=== PATIENT | female | born 1975 | race Caucasian/White ===

== ENCOUNTER 2016-05-06 21:43 | Emergency (ER) | payer OTHER ==
[2016-05-06 21:52] VITALS: TEMP 98.2
--- NOTE | 2016-05-06 22:04 | EDPHY ---
H & P Stated Complaint: Wepw-Zot-Ywyxmn monitor rate was 190bpm-seeoumou Kiser. HPI/ROS: HPI CHIEF COMPLAINT: Palpitations HISTORY OF PRESENT ILLNESS: This patient very pleasant 40-year-old female denies any significant medical history except for bipolar disorder as well as thyroid disease, presents to the emergency room palpitations. Patient states that she has been seeing Dr. Kiser for evaluation of palpitations been wearing a Holter monitor for an entire month and today was the last day she is supposed to be wearing this monitor. She tells me she has had 3 episodes of palpitations that were significant over the past month. She tells me she has underlying AFib. This is a new diagnosis for her. She is not on any anticoagulation. Today around 8:30 p.m. she developed palpitations racing heart and shortness of breath however no chest pain. She she states that she alerted the Holter monitor for an event and Dr. Morin called her around 8 30 and recommend that she go to the emergency room as her heart rate was in the 190s. Past Medical History: Bipolar disorder, depression, thyroid disease Past Surgical History: Social History: Denies daily use of drugs alcohol tobacco products, lives in [place], is a teacher Family History: noncontributory ROS REVIEW OF SYSTEMS: A comprehensive 10 point review of systems is otherwise negative aside from elements mentioned in the history of present illness. Exam Constitutional triage nursing summary reviewed, vital signs reviewed, awake/ alert. Eyes normal conjunctivae and sclera, EOMI, PERRLA. HENT normal inspection, atraumatic, moist mucus membranes, no epistaxis, neck supple/ no meningismus, no raccoon eyes. Respiratory clear to auscultation bilaterally, normal breath sounds, no respiratory distress, no wheezing. Cardiovascular irregular, irregular rhythm, no murmur, no edema, distal pulses normal. Gastrointestinal soft, non-tender, no rebound, no guarding, normal bowel sounds, no distension, no pulsatile mass. Genitourinary no CVA tenderness. Musculoskeletal no midline vertebral tenderness, full range of motion, no calf swelling, no tenderness of extremities, no meningismus, good pulses, neurovascularly intact. Skin pink, warm, & dry, no rash, skin atraumatic. Neurologic awake, alert and oriented x 3, AAOx3, moves all 4 extremities equally, motor intact, sensory intact, CN II-XII intact, normal cerebellar, normal vision, normal speech. Psychiatric normal mood/affect. Heme/Lymph/Immune no lymphadenopathy. Differential Diagnosis: Includes but is not limited to in a particular order AFib AFib with RVR, dehydration, electrolyte abnormality, other arrhythmia doubt acute coronary syndrome Medical Decision Making: plan for this patient be placed on full teletypesetter monitor , IV establishment, EKG, chest x-ray, D-dimer, troponin fluid bolus. And will consult Dr. Morin. Re-evaluation: EKG interpretation by me on record in [employer] system. Impression time of EKG 2203, this is AFib rate of 113 no acute ischemic changes appreciated ED x-ray chest one view: Negative for acute cardiopulmonary disease. 2310: Re-evaluation this time patient is resting comfortably no chest pain or shortness of breath. She is on the teletypesetter monitor heart rate is 96 in AFib, blood pressure stable pulse ox stable. Spoke with Dr. Vasquez at this time and would like the patient started on metoprolol 25 mg p. o. twice daily and Eliquis 5 mg p. o. twice daily. And follow up with Dr. Kiser outpatient on Wednesday. Patient does understand return emergency room if she develops worsening shortness of breath, chest pain, syncope, palpitations. 2322: patient is comfortable going home. She is comfortable this plan. She does understand return emergency room if she has syncope, chest pain, shortness of breath, or does not feel well. Also has fast heart rate. She understands follow-up with [facility] on Wednesday. Also if she develops any stroke-like symptoms she needs to immediately return to the ER she understands this. Source: Patient - Personal History LMP (Females 10-55): 8-14 Days Ago Current Tetanus/Diphtheria Vaccine: Unsure - Medical/Surgical History Hx Asthma: No Hx Chronic Respiratory Disease: No Hx Diabetes: No Hx Cardiac Disease: Yes Hx Renal Disease: No Hx Cirrhosis: No Hx Alcoholism: No Hx HIV/AIDS: No Hx Splenectomy or Spleen Trauma: No Other PMH: Afib new Diagnosis, Bipolar - Social History Smoking Status: Never smoked Constitutional: Initial Vital Signs Temperature (C) 36.8 C 05/06/16 21:49 Heart Rate 108 H 05/06/16 21:49 Respiratory Rate 16 05/06/16 21:49 Blood Pressure 126/93 H 05/06/16 21:49 O2 Sat (%) 95 05/06/16 21:49 O2 Delivery Mode Nasal Cannula O2 (L/minute) 3 Allergies/Adverse Reactions: Penicillins Allergy (Unknown, Verified 05/06/16 21:53) Home Medications: Medication Instructions Recorded LAMOTRIGINE 400 mg PO DAILY06 07/11/13 Levothyroxine 250 mcg PO DAILY06 07/11/13 Liothyronine Sodium 100 mcg PO DAILY06 07/11/13 OXcarbazepine 600 mg PO HS 07/11/13 Apixaban [Eliquis] 5 mg PO BID #14 tab 05/06/16 [place] Carbonate 05/06/16 Metoprolol Tartrate [Lopressor 25 25 mg PO BID #30 tab 05/06/16 mg (*)] Nuedexta 20-10 mg Capsule 05/06/16 Medical Decision Making - Data Points Laboratory Results: Laboratory Results 05/06/16 22:08 05/06/16 22:08 05/06/16 05/06/16 05/06/16 22:08 22:08 22:08 WBC 9.57 10^3/uL H 10^3/uL (3.80-9.50) RBC 4.85 10^6/uL 10^6/uL (4.18-5.33) Hgb 14.0 g/dL g/dL (12.6-16.3) Hct 42.2 % % (38.0-47.0) MCV 87.0 fL fL (81.5-99.8) MCH 28.9 pg pg (27.9-34.1) MCHC 33.2 g/dL g/dL (32.4-36.7) RDW 12.7 % % (11.5-15.2) Plt Count 342 10^3/uL 10^3/uL (150-400) MPV 8.9 fL fL (8.7-11.7) Neut % (Auto) 47.2 % % (39.3-74.2) Lymph % (Auto) 37.9 % % (15.0-45.0) Irwin % (Auto) 12.1 % % (4.5-13.0) Eos % (Auto) 2.5 % % (0.6-7.6) Baso % (Auto) 0.2 % L % (0.3-1.7) Nucleat RBC Rel Count 0.0 % % (0.0-0.2) Absolute Neuts (auto) 4.51 10^3/uL 10^3/uL (1.70-6.50) Absolute Lymphs (auto) 3.63 10^3/uL H 10^3/uL (1.00-3.00) Absolute Monos (auto) 1.16 10^3/uL H 10^3/uL (0.30-0.80) Absolute Eos (auto) 0.24 10^3/uL 10^3/uL (0.03-0.40) Absolute Basos (auto) 0.02 10^3/uL 10^3/uL (0.02-0.10) Absolute Nucleated RBC 0.00 10^3/uL 10^3/uL (0-0.01) Immature Gran % 0.1 % % (0.0-1.1) Immature Gran # 0.01 10^3/uL 10^3/uL (0.00-0.10) PT 13.3 SEC SEC (12.0-15.0) INR 1.02 (0.83-1.16) APTT 31.8 SEC SEC (23.0-38.0) D-Dimer 0.36 ug/mLFEU ug/mLFEU (0.00-0.50) Sodium 141 mEq/L mEq/L (134-144) Potassium 4.4 mEq/L mEq/L (3.5-5.2) Chloride 105 mEq/L mEq/L (97-110) Carbon Dioxide 25 mEq/l mEq/l (22-31) Anion Gap 11 mEq/L mEq/L (8-16) BUN 20 mg/dL mg/dL (7-23) Creatinine 1.1 mg/dL H mg/dL (0.6-1.0) Estimated GFR 55 Glucose 95 mg/dL mg/dL (70-100) Calcium 10.2 mg/dL mg/dL (8.5-10.4) Magnesium 2.1 mg/dL mg/dL (1.6-2.3) Total Bilirubin 0.6 mg/dL mg/dL (0.1-1.4) Conjugated Bilirubin 0.3 mg/dL mg/dL (0.0-0.5) Unconjugated Bilirubin 0.3 mg/dL mg/dL (0.0-1.1) AST 28 IU/L IU/L (14-46) ALT 41 IU/L IU/L (9-52) Alkaline Phosphatase 135 IU/L H IU/L (38-126) Creatine Kinase 40 IU/L IU/L (0-156) CK-MB (CK-2) Fraction 0.90 ng/mL ng/mL (0-3.19) Troponin I < 0.012 ng/mL ng/mL (0-0.034) NT-Pro-B Natriuret Pep 240 pg/mL H pg/mL (0-125) Total Protein 7.3 g/dL g/dL (6.3-8.2) Albumin 4.3 g/dL g/dL (3.5-5.0) Lipase 120.0 IU/L IU/L (23-300) Medications Given: Discontinued Medications Sodium Chloride (Ns) 1,000 mls @ 0 mls/hr IV ONCE ONE PRN Reason: Wide Open Stop: 05/06/16 22:13 Last Admin: 05/06/16 22:15 Dose: 1,000 mls Metoprolol Tartrate (Lopressor) 25 mg PO EDNOW ONE Stop: 05/06/16 23:11 Last Admin: 05/06/16 23:20 Dose: 25 mg Departure - Departure Disposition: Home, Routine, Self-Care Clinical Impression: Afib Qualifiers: Atrial fibrillation type: paroxysmal Qualified Code(s): I48.0 - Paroxysmal atrial fibrillation Condition: Good Instructions: A-fib (Atrial Fibrillation) (ED) Additional Instructions: 1. Please return to the emergency room if develops very fast heart rate, chest pain, shortness of breath or you pass out. 2. please take your prescriptions as prescribed. 3. Please follow up with Dr. Kiser on Wednesday. Please call their for an appointment. 4. You have been started on a beta-bjorn called metoprolol this can lower your heart rate. 5. You have also been started on Eliquis which is a blood thinner. Referrals: SIGIFREDO SANTOS [Primary Care Provider] - As per Instructions Prescriptions: Apixaban [Eliquis] 5 mg PO BID #14 tab Metoprolol Tartrate [Lopressor 25 mg (*)] 25 mg PO BID #30 tab
--- NOTE | 2016-05-06 22:06 | CPEKG ---
Heart Rate: 113 RR Interval: 531 QRSD Interval: 86 QT Interval: 316 QTC Interval: 434 QRS [place]: 32 T Wave [place]: 44 EKG Severity - ABNORMAL ECG - EKG Impression: ATRIAL FIBRILLATION, V-RATE 84-161 Electronically Signed By: Hira Alvares 07-May-2016 07:29:26
[2016-05-06] MEDS ORDERED: NS 1,000 ML IV ONE (22:12)
[2016-05-06 22:20] LABS: % IMMATURE GRANULYOCYTES 0.1 % (0.0-1.1); ABSOLUTE IMMATURE GRANULOCYTES 0.01 10^3/uL (0.00-0.10); ADD DIFF? NO; ADD MORPH? NO; ADD SCAN? NO; ATYPICAL LYMPHOCYTE FLAG 10 (0-99); FRAGMENT RBC FLAG 0 (0-99); HEMATOCRIT 42.2 % (38.0-47.0); LEFT SHIFT FLG 0 (0-99); LIPEMIA HEMOLYSIS FLAG 80 (0-99); MEAN CELL HEMOGLOBIN 28.9 pg (27.9-34.1); MEAN CELL HEMOGLOBIN CONCENTR. 33.2 g/dL (32.4-36.7); MEAN PLATELET VOLUME 8.9 fL (8.7-11.7); PLATELET CLUMPS FLAG 0 (0-99); PLATELET COUNT 342 10^3/uL (150-400); RED BLOOD CELL COUNT 4.85 10^6/uL (4.18-5.33); RED CELL DISTRIBUTION WIDTH 12.7 % (11.5-15.2)
[2016-05-06 22:30] LABS: INR 1.02 (0.83-1.16); PROTIME(PATIENT) 13.3 SEC (12.0-15.0)
[2016-05-06 22:31] LABS: APTT 31.8 SEC (23.0-38.0)
[2016-05-06 22:37] LABS: ALANINE AMINOTRANSFERASE 41 IU/L (9-52); ALBUMIN 4.3 g/dL (3.5-5.0); ALKALINE PHOSPHATASE 135 IU/L (38-126); ANION GAP 11 mEq/L (8-16); ASPARTATE AMINOTRANSFERASE 28 IU/L (14-46); BILIRUBIN,TOTAL 0.6 mg/dL (0.1-1.4); BILIRUBIN-CONJUGATED 0.3 mg/dL (0.0-0.5); BILIRUBIN-UNCONJUGATED 0.3 mg/dL (0.0-1.1); CALCIUM 10.2 mg/dL (8.5-10.4); CARBON DIOXIDE 25 mEq/l (22-31); CHLORIDE 105 mEq/L (97-110); CREATININE 1.1 mg/dL (0.6-1.0); GLOMERULAR FILTRATION RATE 55; GLUCOSE 95 mg/dL (70-100); MAGNESIUM 2.1 mg/dL (1.6-2.3); POTASSIUM 4.4 mEq/L (3.5-5.2); SODIUM 141 mEq/L (134-144); TOTAL PROTEIN 7.3 g/dL (6.3-8.2)
[2016-05-06 22:48] LABS: TROPONIN I < 0.012 ng/mL (0-0.034)
[2016-05-06] MEDS ORDERED: METOPROLOL TARTRATE 25 MG TAB PO ONE (23:10)
[2016-05-06 23:16] VITALS: RESP 20
[2016-05-06] MEDS ORDERED: APIXABAN 5 MG TAB PO SCH (23:30)
[2016-05-06 23:36] VITALS: BP 117/94; PULSE 70; O2SAT 95
== END 2016-05-06 23:36 | disposition home or self-care (01) ==
DX: I48.0 Paroxysmal atrial fibrillation (principal)